=== PATIENT | female | born 1955 | race Caucasian/White ===

== ENCOUNTER 2017-08-22 12:24 | Emergency (ER) | payer OTHER ==
[~2017-08-22] VITALS: Ht 152.4 cm; Wt 79.3 kg
[2017-08-22 12:42] VITALS: Ht 152.4 cm; Wt 79.3 kg
[2017-08-22] MEDS ORDERED: ONDANSETRON 4 MG INJ IV STA (14:49)
[2017-08-22] MEDS ORDERED: SOD CHLORIDE 0.9% 1,000 ML IV STA (14:49)
[2017-08-22 16:03] LABS: BASOPHILS % 0.3 % (0.0-2.0); EOSINOPHILS # 0.1 10^3/ul (0.0-0.5); EOSINOPHILS % 1.3 % (0.0-7.0); HEMATOCRIT 43.5 % (37.0-47.0); HEMOGLOBIN 14.2 g/dl (12.0-16.0); LYMPHOCYTES # 2.9 10^3/ul (0.8-2.9); LYMPHOCYTES % 30.9 % (15.0-51.0); MEAN CORPUSCULAR HGB CONC 32.6 g/dl (32.0-37.0); MEAN CORPUSCULAR VOLUME 88.8 fl (82.0-101.0); MEAN PLATELET VOLUME 12.6 fl (7.4-10.4); MONOCYTE # 0.5 10^3/ul (0.3-0.9); MONOCYTES % 5.1 % (0.0-11.0); NEUTROPHIL # 5.9 10^3/ul (1.6-7.5); NEUTROPHILS % 62.1 % (39.0-77.0); PLATELET COUNT 239 10^3/UL (140-415); RED CELL DISTRIBUTION WIDTH 13.4 % (11.5-14.5); WHITE BLOOD COUNT 9.5 10^3/ul (4.8-10.8)
[2017-08-22 16:16] LABS: ALBUMIN 4.1 g/dl (3.3-4.9); ALBUMIN/GLOBULIN RATIO 1.1; BILIRUBIN,INDIRECT 0.5 mg/dl (0-1.1); BILIRUBIN,TOTAL 0.5 mg/dl (0.2-1.3); CALCIUM 9.6 mg/dl (8.4-10.2); CREATININE 0.65 mg/dl (0.44-1.00); POTASSIUM 4.4 mmol/L (3.5-5.1); TOTAL PROTEIN 7.8 g/dl (6.1-8.1)
[2017-08-22 16:29] VITALS: RESP 18; TEMP 98
--- NOTE | 2017-08-22 16:59 | ERD ---
ER Documentation Chief Complaint Chief Complaint n/v after mri study today with contrast; no rash or sob HPI This is a 62-year-old female presenting to the emergency department stating that she had 4 episodes of nonbilious nonbloody vomiting and nausea after receiving IV contrast for an MRI of her ear. Patient states that she feels better now, she denies any itchiness, rash or shortness of breath denies chest pain, she abdominal pain ROS All systems reviewed and are negative except as per history of present illness. Allergies Allergies: Coded Allergies: Penicillins (Verified Allergy, Intermediate, 08/22/17) pt states difficulty breathing, stomach pain PMhx/Soc Medical and Surgical Hx: pt denies Medical Hx, pt denies Surgical Hx Hx Alcohol Use: No Hx Substance Use: No Hx Tobacco Use: No Smoking Status: Never smoker Physical Exam Vitals Vital Signs Date Time Temp Pulse Resp B/P Pulse Ox O2 Delivery O2 Flow Rate FiO2 08/22/17 16:29 98.0 70 18 163/73 98 Room Air 08/22/17 12:42 98.9 90 18 179/77 96 Physical Exam Const: [] Head: Atraumatic Eyes: Normal Conjunctiva ENT: Normal External Ears, Nose and Mouth. Neck: Full range of motion..~ No meningismus. Resp: Clear to auscultation bilaterally Cardio: Regular rate and rhythm, no murmurs Abd: Soft, non tender, non distended. Normal bowel sounds Skin: No petechiae or rashes Back: No midline or flank tenderness Ext: No cyanosis, or edema Neur: Awake and alert Psych: Normal Mood and Affect Result Diagram: 08/22/17 1528 08/22/17 1528 Results 24 hrs Laboratory Tests Test 08/22/17 15:28 White Blood Count 9.510^3/ul Red Blood Count 4.9010^6/ul Hemoglobin 14.2g/dl Hematocrit 43.5% Mean Corpuscular Volume 88.8fl Mean Corpuscular Hemoglobin 29.0pg Mean Corpuscular Hemoglobin Concent 32.6g/dl Red Cell Distribution Width 13.4% Platelet Count 45089^3/UL Mean Platelet Volume 12.6fl Neutrophils % 62.1% Lymphocytes % 30.9% Monocytes % 5.1% Eosinophils % 1.3% Basophils % 0.3% Nucleated Red Blood Cells % 0.0/100WBC Neutrophils # 5.910^3/ul Lymphocytes # 2.910^3/ul Monocytes # 0.510^3/ul Eosinophils # 0.110^3/ul Basophils # 0.010^3/ul Nucleated Red Blood Cells # 0.010^3/ul Sodium Level 142mmol/L Potassium Level 4.4mmol/L Chloride Level 102mmol/L Carbon Dioxide Level 30mmol/L Anion Gap 14 Blood Urea Nitrogen 10mg/dl Creatinine 0.65mg/dl Glucose Level 100mg/dl Calcium Level 9.6mg/dl Total Bilirubin 0.5mg/dl Direct Bilirubin 0.00mg/dl Indirect Bilirubin 0.5mg/dl Aspartate Amino Transf (AST/SGOT) 29IU/L Alanine Aminotransferase (ALT/SGPT) 43IU/L Alkaline Phosphatase 105IU/L Total Protein 7.8g/dl Albumin 4.1g/dl Globulin 3.70g/dl Albumin/Globulin Ratio 1.10 Current Medications Medications (Trade) Dose Ordered Sig/Alfonso Route PRN Reason Start Time Stop Time Status Last Admin Dose Admin Sodium Chloride (NS) 1,000 ml @ 1,000 mls/hr Q1H STAT IV 08/22/17 14:49 08/22/17 15:48 DC 08/22/17 15:35 Ondansetron HCl (Zofran Inj) 4 mg ONCE STAT IV 08/22/17 14:49 08/22/17 14:50 DC 08/22/17 15:35 Procedures/MDM This is a 62-year-old female presenting to the emergency department with nausea and vomiting after receiving IV contrast for an MRI, this appears to be a side effect. There was no evidence of allergic reaction or anaphylaxis. Patient is well-appearing, stable vital signs and stable to be discharged home to follow- up with her primary care physician. IV access established, patient was given 1 L of fluids. Lab work was drawn. CBC did not show any evidence of leukocytosis or anemia. CMP did not show any evidence of renal, liver, or electrolyte abnormalities. Departure Diagnosis: Primary Impression: Nausea and vomiting Additional Impression: Contrast media adverse reaction Condition: Stable Patient Instructions: Drug Reaction, Other Referrals: EMERGENCY,DOCTOR GROUP Additional Instructions: FOLLOW UP WITH YOUR PRIMARY CARE PHYSICIAN TOMORROW.Return to this facility if you are not improving as expected. ONEYDA JUNIOR PA-C Aug 22, 2017 16:59
[2017-08-22 17:08] VITALS: BP 149/71; PULSE 71
== END 2017-08-22 17:15 | disposition home or self-care (01) ==
LOC: FTE 12:24
DX: R11.2 Nausea with vomiting, unspecified (principal); T50.8X5A Adverse effect of diagnostic agents, initial encounter
CPT/HCPCS: 36415; 80053; 85025; 96374; 99284; J2405; J7030